=== PATIENT | male | born 1950 | race Caucasian/White ===

== ENCOUNTER → 2018-10-18 | Outpatient (CLI) | payer OTHER ==
--- NOTE | 2018-10-19 17:10 | REP ---
REASON FOR EXAM: Lung cancer. COMPARISON: PET CT none. After the intravenous administration of 9.47 millicuries of FDG [address] was performed from the skull base to the mid thigh. Prior CT scan at an outside institution which I do not have to review showed a 1.2 cm sized nodular opacity in the right upper lobe which appeared spiculated and for which this examination was performed. There is no abnormal hypermetabolic activity seen in the neck, chest, abdomen, or pelvis. There is an asymmetric density seen on the CT component of today's exam in the right lung apex, however, this is not hypermetabolic. IMPRESSION:No abnormal areas of hypermetabolism. Electronically Signed by Alex Castillo DO 10/19/2018 05:15 P
== END ==
LOC: M PLARAD 15:09
PROVIDERS: ATTEND Internal Medicine Pulmonary Disease
DX: R91.1 Solitary pulmonary nodule (principal)
CPT/HCPCS: 78815; A9552